=== PATIENT | female | born 1960 | race Caucasian/White ===

== ENCOUNTER 2018-02-20 09:03 | Emergency (ER) | payer MEDICARE, MEDICAID ==
[~2018-02-20] VITALS: Ht 162.6 cm; Wt 67.0 kg
[~2018-02-20 09:03] MED LIST: ALBU8.5H8 INH; CEPH500C5 PO; CLOT15CR5 VG; CYCL-1 PO; FLUO20CA39 PO; FLUT16SP2 BOTHNARES; GABA600T2 PO; GLYB5TAB7 PO; HYDR-3686 PO; HYDR-569 PO; INSU300I; LORA10TA7 PO
[2018-02-20 09:08] VITALS: BP 115/72
[2018-02-20] MEDS ORDERED: amox tr/potassium clavulanate 875/125mg TAB PO ONE (09:25)
[2018-02-20] MEDS ORDERED: AMOX-422 PO (09:44)
== END 2018-02-20 09:47 | disposition home or self-care (01) ==
LOC: ER 09:03
DX: L03.113 Cellulitis of right upper limb (principal); I50.9 Heart failure, unspecified; I11.0 Hypertensive heart disease with heart failure; J44.9 Chronic obstructive pulmonary disease, unspecified; E11.9 Type 2 diabetes mellitus without complications; Z98.890 Other specified postprocedural states; Z90.49 Acquired absence of other specified parts of digestive tract; Z90.710 Acquired absence of both cervix and uterus; Z98.51 Tubal ligation status; F15.90 Other stimulant use, unspecified, uncomplicated; Z56.0 Unemployment, unspecified; Z60.2 Problems related to living alone; Z88.8 Allergy status to other drugs, medicaments and biological substances; Z79.2 Long term (current) use of antibiotics; Z79.899 Other long term (current) drug therapy
CPT/HCPCS: 99283

== ENCOUNTER 2018-03-17 14:43 | Emergency (ER) | payer MEDICARE, MEDICAID ==
[~2018-03-17] VITALS: Ht 162.6 cm; Wt 56.0 kg
[~2018-03-17 14:43] MED LIST changes: +AMOX-422 PO
[2018-03-17 17:22] VITALS: BP 97/57
[2018-03-17] MEDS ORDERED: ONDA4TAB9 PO (17:39)
[2018-03-17] MEDS ORDERED: HYDR-565 PO (17:39)
[2018-03-17] MEDS ORDERED: HYDROcodone/acetaminophen 10/325mg tab PO ONE (17:40)
[2018-03-17] MEDS ORDERED: ondansetron 4mg rapidly disintigrating tab PO ONE (17:40)
== END 2018-03-17 18:09 | disposition home or self-care (01) ==
LOC: ER 14:44
DX: M25.531 Pain in right wrist (principal); I11.0 Hypertensive heart disease with heart failure; I50.9 Heart failure, unspecified; J44.9 Chronic obstructive pulmonary disease, unspecified; E11.9 Type 2 diabetes mellitus without complications; G89.29 Other chronic pain; F15.10 Other stimulant abuse, uncomplicated; Z87.442 Personal history of urinary calculi; Z90.49 Acquired absence of other specified parts of digestive tract; Z90.710 Acquired absence of both cervix and uterus; Z98.890 Other specified postprocedural states; Z98.51 Tubal ligation status; Z56.0 Unemployment, unspecified; Z60.2 Problems related to living alone; Z88.8 Allergy status to other drugs, medicaments and biological substances; Z88.1 Allergy status to other antibiotic agents; Z79.899 Other long term (current) drug therapy
CPT/HCPCS: 29125; 73110; 73130; 99284

== ENCOUNTER 2019-05-25 22:46 | Emergency (ER) | payer MEDICARE, MEDICAID ==
[~2019-05-25] VITALS: Ht 162.6 cm; Wt 65.9 kg
[~2019-05-25 22:46] MED LIST changes: -AMOX-422 PO; -CEPH500C5 PO; +GABA600T13 PO; -GABA600T2 PO; +HYDR-4383 PO; -HYDR-569 PO; -INSU300I; +INSU300I SQ
[2019-05-25] MEDS ORDERED: charcoal, activated 50 GM/240 ML bottle PO STA (22:52)
[2019-05-25] MEDS ORDERED: normal saline 1000ML IV soln IVB ONE (22:55)
[2019-05-25 23:10] LABS: URINE HCG NEGATIVE (NEG)
[2019-05-25 23:22] LABS: URINE AMPHETAMINE SCREEN NEGATIVE (Neg); URINE BARBITUATE SCREEN NEGATIVE (Neg); URINE BENZODIAZEPINES SCREEN NEGATIVE (Neg); URINE CANNABINOID SCREEN NEGATIVE (Neg); URINE COCAINE SCREEN NEGATIVE (Neg); URINE METHADONE SCREEN NEGATIVE (Neg); URINE OPIATE SCREEN NEGATIVE (Neg); URINE PHENCYCLIDINE SCREEN NEGATIVE (Neg)
[2019-05-25 23:25] LABS: ALANINE AMINOTRANSFERASE 37 U/L (12-78); ALBUMIN/GLOBULIN RATIO 0.6 (1.1-1.5); ALKALINE PHOSPHATASE 122 IU/L (46-116); ANION GAP 11 (8-16); ASPARTATE AMINO TRANSFERASE 14 U/L (10-37); BILIRUBIN,TOTAL 0.1 MG/DL (0.1-1.0); BLOOD UREA NITROGEN 23 MG/DL (7-18); BUN/CREATININE RATIO 23.7 (6.6-38.0); CALCIUM 8.9 MG/DL (8.5-10.1); CHLORIDE 98 MMOL/L (99-107); CREATININE 0.97 MG/DL (0.40-0.90); POTASSIUM 3.8 MMOL/L (3.5-5.1); SODIUM 131 MMOL/L (135-145); TOTAL CARBON DIOXIDE 21.9 MMOL/L (24-32); TOTAL PROTEIN 8.3 G/DL (6.4-8.2); eGFR 59 ML/MIN
--- NOTE | 2019-05-25 23:27 | NUR ---
SUKI FROM [facility] CONTACTED, RECOMMENDATIONS: "GABAPENTIN IS WELL TOLERATED UP TO 35 G WITH ONLY MILD TOXICITY SHOWING". RECOMMENDS OBSERVATION FOR 4-6 HOURS OR TO PT BASELINE, WATCHING FOR SEDATION AND SLIGHT RESPIRATORY DEPRESSION. ALSO RECOMMENDS TOX SCREEN TO CONFIRM ANY OTHER INGESTION OF MEDICATIONS
[2019-05-25 23:29] LABS: BASOPHILS # (AUTO) 0.1 X10'3 (0-0.2); BASOPHILS % (AUTO) 0.8 % (0-1); EOSINOPHILS # (AUTO) 0.2 X10'3 (0-0.9); EOSINOPHILS % (AUTO) 1.7 % (0-6); HEMOGLOBIN 14.9 g/dl (12.0-16.0); LYMPHOCYTES # (AUTO) 3.3 X10'3 (1.1-4.8); LYMPHOCYTES % (AUTO) 31.5 % (21-51); MEAN CORPUSCULAR HEMOGLOBIN 29.3 PG (27.0-31.0); MEAN CORPUSCULAR HGB CONC 33.9 g/dL (33.0-36.5); MEAN CORPUSCULAR VOLUME 86.4 FL (78-98); MEAN PLATELET VOLUME 8.8 FL (7.4-10.4); MONOCYTES # (AUTO) 0.6 X10'3 (0-0.9); MONOCYTES % (AUTO) 5.5 % (2-12); NEUTROPHILS # (AUTO) 6.3 X10'3 (1.8-7.7); NEUTROPHILS % (AUTO) 60.5 % (42-75); PLATELET COUNT 264 X10'3 (140-440); RED CELL DISTRIBUTION WIDTH 13.1 % (11.5-14.5); WHITE BLOOD COUNT 10.5 X10'3 (4.5-11.0)
[2019-05-25 23:38] LABS: ETHANOL < 0.010 GM/DL (0.0-0.010); GLUCOSE 554 MG/DL (70-104)
[2019-05-25] MEDS ORDERED: insulin regular, human 10 units/0.1 ml syringe IV ONE (23:40)
[2019-05-25] MEDS ORDERED: insulin regular, human 10 units/0.1 ml syringe SQ ONE (23:40)
--- NOTE | 2019-05-25 23:44 | NUR ---
PT STATES LEG TREMORS ARE BASELINE. PT TAKES GABAPENTIN FOR RESTLESS LEG SYNDROME AND NEUROPATHY
--- NOTE | 2019-05-26 00:08 | NUR ---
PT GIVEN WARM BLANKET UPON REQUEST. PT SLEEPING COMFORTABLY, RR EVEN AND UNLABORED AT 19 RPM. NO SIGNS OF RESP DEPRESSION, WILL CONTINUE TO MONITOR
--- NOTE | 2019-05-26 01:08 | NUR ---
RELIEVING RN FOR BREAK,PT IS SLEEPING, EASILY AROUSEABLE, ACCU CHECK 482
[2019-05-26] MEDS ORDERED: insulin regular, human 10 units/0.1 ml syringe SQ ONE (01:30)
--- NOTE | 2019-05-26 01:45 | NUR ---
[facility] CALLED TO RECEIVE UPDATE ON PT. NO FURTHER RECOMMENDATIONS
[2019-05-26] MEDS ORDERED: insulin regular, human 10 units/0.1 ml syringe IV STA (03:44)
[2019-05-26] MEDS ORDERED: insulin regular, human 10 units/0.1 ml syringe SQ STA (03:44)
[2019-05-26] MEDS: metFORMIN 500mg tablet PO ONE ×2 (03:52→03:54)
--- NOTE | 2019-05-26 04:37 | NUR ---
PT TALKED WITH RN FOR 45 MINUTES. PT STATING SHE WANTS TO AND WANTS TO TRY AGAIN WITH MORE LETHAL OPTIONS IF SHE CAN. PT STATES SHE WANTS TO USE A GUN, BUT HAS NO OPTIONS OF ATTAINING ONE.
[2019-05-26 06:41] VITALS: BP 101/76
[2019-05-26] MEDS ORDERED: fluticasone nasal spray 16GM bottle NS SCH (08:00)
[2019-05-26] MEDS ORDERED: GABA-530 PO (08:14)
[2019-05-26] MEDS ORDERED: albuterol 2.5 MG/3 ML nebule NEB PRN (08:20)
[2019-05-26] MEDS ORDERED: hydrOXYzine 25 MG tablet PO PRN (08:20)
[2019-05-26] MEDS: glimepiride 1 MG tablet PO SCH ×2 (08:30→10:10)
--- NOTE | 2019-05-26 09:07 | NUR ---
Received report from Faye and pt is transferred over to ER overflow and had pt changed into green scrubs
--- NOTE | 2019-05-26 10:30 | NUR ---
Pt is resting comfortably on her left side in no apparent distress. Respirations are even and unlabored.
--- NOTE | 2019-05-26 11:07 | NUR ---
Spoke with Dr. Siegel regarding patients blood glucose and possible need to continue to monitor blood glucose after administering insulin this morning. Dr. Siegel stated to perform Q1H accuchecks now, 1200, and 1300 until establishing a trend, then [facility] accu checks. Will place order per MD request. Alice RN aware.
--- NOTE | 2019-05-26 11:37 | NUR ---
Pt talking to socail worker from [facility] Kellen
--- NOTE | 2019-05-26 11:44 | NUR ---
Pt discharged by [facility]
--- NOTE | 2019-05-26 12:02 | NUR ---
Pt escorted to lobby
[2019-05-26] MEDS ORDERED: insulin glargine (Lantus) pen - multi-dose SQ SCH (21:00)
[2019-05-27] MEDS ORDERED: gabapentin 100mg capsule PO SCH (08:00)
[2019-05-27] MEDS ORDERED: FLUoxetine 20mg capsule PO SCH (08:00)
== END 2019-05-26 12:05 | disposition home or self-care (01) ==
LOC: ER 22:47
DX: T42.6X2A Poisoning by other antiepileptic and sedative-hypnotic drugs, intentional self-harm, initial encounter (principal); I11.0 Hypertensive heart disease with heart failure; I50.9 Heart failure, unspecified; J44.9 Chronic obstructive pulmonary disease, unspecified; E11.9 Type 2 diabetes mellitus without complications; G89.29 Other chronic pain; F32.9 Major depressive disorder, single episode, unspecified; F15.90 Other stimulant use, unspecified, uncomplicated; Z90.49 Acquired absence of other specified parts of digestive tract; Z87.442 Personal history of urinary calculi; Z90.710 Acquired absence of both cervix and uterus; Z98.51 Tubal ligation status; Z98.890 Other specified postprocedural states; Z56.0 Unemployment, unspecified; Z88.8 Allergy status to other drugs, medicaments and biological substances; Z79.4 Long term (current) use of insulin; Z79.899 Other long term (current) drug therapy; Y92.89 Other specified places as the place of occurrence of the external cause
CPT/HCPCS: 36415; 80053; 80305; 80320; 81025; 82948; 85025; 93005; 96372; 96374; 96376; 99285; J1815; J7030; Z7610; 99283

== ENCOUNTER 2021-02-16 09:11 | Emergency (ER) | payer BC, MEDICAID ==
[~2021-02-16 09:11] MED LIST changes: +CLOT15CR35 VG; -CLOT15CR5 VG; +GABA-530 PO; -GABA600T13 PO
[2021-02-16 09:34] VITALS: BP 141/82
== END 2021-02-16 15:57 | disposition left against medical advice (07) ==
LOC: ER 09:11
DX: R79.9 Abnormal finding of blood chemistry, unspecified (principal); Z53.21 Procedure and treatment not carried out due to patient leaving prior to being seen by health care provider
CPT/HCPCS: 82948